=== PATIENT | male | born 1950 | race Caucasian/White ===

== ENCOUNTER → 2020-11-30 | Outpatient (CLI) | payer BC ==
[~2020-11-30] MED LIST: ASPIRIN CHEWABL81 MG PO; COLACE 100MG C100 MG PO; COZAAR25 MG PO; GLUCOTROL XL 5 M5 MG PO; NORVASC 5 MG TAB5 MG PO; PROTONIX40 MG PO; ZOCOR20 MG PO
[2020-12-01 07:10] LABS: CREATININE, URINE 85.8 mg/dL (Not Estab.)
== END ==
LOC: LAB 11:04
PROVIDERS: Internal Medicine Nephrology
DX: N18.30 Chronic kidney disease, stage 3 unspecified (principal); M10.9 Gout, unspecified
CPT/HCPCS: 36415; 80048; 82043; 82570